=== PATIENT | female | born 1975 | race Caucasian/White ===

== ENCOUNTER → 2016-08-24 | Day surgery (SDC) | payer OTHER ==
--- NOTE | 2016-08-23 11:08 | NUR ---
PT VERBALIZED UNDERSTANDING OF QUESTIONS AND INSTRUCTIONS. SHE OPENLY ASKED QUESTIONS AND I REPHRASED IF NEEDED UNTIL SHE HAD A GOOD UNDERSTANDING OF ANSWER GIVEN. THEN SHE WOULD REPEAT BACK TO ME SO I KNEW SHE UNDERSTOOD. ALL QUESTIONS ANSWERED.
[~2016-08-24] VITALS: Ht 167.6 cm; Wt 77.1 kg
== END | disposition home or self-care (01) ==
LOC: FAS 08:55
DX: K29.50 Unspecified chronic gastritis without bleeding (principal); K21.9 Gastro-esophageal reflux disease without esophagitis; F32.9 Major depressive disorder, single episode, unspecified; Z79.84 Long term (current) use of oral hypoglycemic drugs; Z79.899 Other long term (current) drug therapy
CPT/HCPCS: 84703; 88305; J2704